=== PATIENT | female | born 1960 | race Caucasian/White ===

== ENCOUNTER 2022-04-01 06:37 | Day surgery (SDC) | payer OTHER, BC, SELFPAY ==
[2022-04-01] VITALS (13 sets, daily range): BP systolic 104–165; BP diastolic 58–75; PULSE 60–80; RESP 16; TEMP 36.1–36.5; O2SAT 96–98; BMI 34.4
[2022-04-01] MEDS: LACTATED RINGERS 1000 ML 1,000 ML 100 ML IV ×2 (07:00→08:32)
[2022-04-01] MEDS: SODIUM CHLORIDE 0.9 % (FLUSH) 10 ML SYRINGE IVF (07:32)
[2022-04-01] MEDS: CEFAZOLIN 2 GM INJ IVP (07:56)
--- NOTE | 2022-04-01 09:07 | P.ORPRC_ITS ---
Procedure Note Date of procedure: 04/01/22 Procedure: PREOPERATIVE DIAGNOSIS: 1. Left knee medial meniscus root tear POSTOPERATIVE DIAGNOSIS: 1. Left knee medial meniscus root tear, subacute 2. 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 Left knee arthroscopic partial medial meniscus root repair 2. Left knee medial femoral condyle chondroplasty 3. Left knee microfracture intercondylar notch SURGEON: Link Gross M.D. HEALTH AND SAFETY INSPECTOR: Brandt RILEY. Of note, a skilled library media assistant was critical for this case to aid in patient positioning, knee manipulation, skill to manipulate arthroscopic instruments and camera, instrument exchange, and closure. ANESTHESIA: Spinal EBL: 10 mL TOURNIQUET: 40 minutes at 300 torr IMPLANTS: Arthrex 4.75 MM peek SwiveLock suture anchor COMPLICATIONS: None evident INDICATIONS: The patient is a pleasant 61-year-old female who has experienced left knee pain particularly with any twisting or turning. Physical exam was concerning for medial meniscus tear, this was confirmed on MRI, but more specifically as at the posterior root. The medial meniscus had otherwise extruded into the medial gutter. Attempted nonoperative management has been tried, and failed. Thus, surgery was recommended for stabilization of the medial meniscus posterior root. FINDINGS: Grade 2 chondromalacia medial femoral condyle broadly throughout the weight-bearing portion. Grade 2 patellofemoral compartment. Intact lateral meniscus with intact articular cartilage lateral compartment. ACL and PCL were intact robust. Medial meniscus showed tearing of the posterior root in a radial manner and unstable. Some hemorrhagic tissue surrounding this region. DESCRIPTION OF PROCEDURE: After a thorough discussion of risks, benefits, and alternatives, the patient was brought to the operating room and placed upon the operating table. Induction of anesthesia was undertaken as previously noted. 2 g IV Ancef was administered within 1 hr of incision preoperatively. Appropriate time-out was performed identifying proper patient, site, and procedure. The left lower extremity was prepped and draped in the appropriate sterile fashion using ChloraPrep. The limb was exsanguinated and tourniquet inflated. Anterolateral and anteromedial portals were established with an 11 blade, and a diagnostic arthroscopy was performed. This identified the findings as noted above. Following the diagnostic arthroscopy, the meniscal root was debrided with a 4.0 mm torpedo shaver. This was to freshen the meniscal edge. This also allowed us to debride some the synovium on the medial wall within the notch. A flip cutter guide for the posterior meniscus root was utilized and placed in the desired fashion where the medial meniscus posterior root should attach. A 6 mm flip cutter was then drilled up from the medial tibial crest region, and exited exactly where our desired spot was. The blade was flipped, and it was retro drilled approximately 5-10 mm deep at most. Attention was then turned to securing of the meniscal root. The meniscal scorpion device was utilized to pass 2 separate # 0 fiber link sutures in a luggage tag fashion. Excellent security of the meniscus was achieved. These tails were brought down through the bone tunnel that was drilled with the flip cutter, using a shuttle suture. After providing tension on this, the meniscus indeed became stable, and improved in position. The sutures were anchored with a 4.75 mm peek SwiveLock suture anchor after drilling, tapping, and placing the anchor. The meniscus was reprobed and found to be stable. At this stage, the Arthrex power pick device was utilized to microfracture the intercondylar notch to aid with the healing of the meniscus repair. Instruments were removed, excess fluid was drained, and closure performed with 2-0 Vicryl for subcutaneous closure of the tibial incision, and 4-0 Monocryl for subcuticular closure and portal closure. with Steri-Strips. Dressings were applied, the tourniquet deflated, and the patient was awoken from anesthesia and transferred to the PACU in stable condition. A skilled library media assistant was critical for this case to aid in patient positioning, knee manipulation, skill to manipulate arthroscopic instruments and camera, instrument exchange, and closure. PLAN: 1. Toe-touch weightbear left lower extremity. Crutch / walker ambulation assistance PRN. 2. Ice, acetominophen and/or ibuprofen, and Percocet for pain as needed. 3. Knee range of motion and quad sets/straight leg raise regularly 4. Follow up with PA visit in 1-2 weeks for a wound check.
--- NOTE | 2022-04-01 09:08 | W.ANESCHARGE ---
Anesthesia Charges Start Date/Time Anesthesia Start Date: 04/01/22 Anesthesia Start Time: 07:42 Stop Date/Time Anesthesia Stop Date: 04/01/22 Anesthesia Stop Time: 09:10 Summary Emergency: No
--- NOTE | 2022-04-01 09:09 | W.PM.NB ---
Nerve Block Nerve Block Time Seen by Provider: 09:05 Date Seen: 04/01/22 Type of block requested by surgeon for post-operative analgesia: geniculars Time out performed: Yes Verification of patient name: Yes Verification of date of : Yes Site marking: site marked Name of person performing procedure: Terence Tinoco Continuous monitoring Was continuous monitoring of O2 sat, B/P, behavioral health professional, recorded every 15 minutes?: Yes Procedure Checklist: sterile prep, needles and gloves Ultrasound guided. Images saved: No Medications given in 5ml increments after negative aspiration: Ropivicaine %: 0.5 mL: 15 Needle gauge: 25 Patient tolerated procedure well: Yes Block Charges Block Charge (with Pro Fee): Genicular Nerve Block Use of Ultrasound Machine for Block: No
--- NOTE | 2022-04-01 09:16 | W.ANESCHARGE ---
Anesthesia Charges Start Date/Time Anesthesia Start Date: 04/01/22 Anesthesia Start Time: 07:42 Stop Date/Time Anesthesia Stop Date: 04/01/22 Anesthesia Stop Time: 09:10 Summary Emergency: No
--- NOTE | 2022-04-01 09:17 | SUR.PHASEI ---
Pt has brace on left knee set at 90 degrees flex and 0 degrees extension
--- NOTE | 2022-04-01 09:24 | SUR.PHASEI ---
Pt starting to move toes and feet senies any pain at this time
[2022-04-01] MEDS: OxyCODONE/APAP 5-325 TABLET PO (10:45)
== END 2022-04-01 11:00 | disposition home or self-care (01) ==
PROVIDERS: Visit Provider Orthopaedic Surgery Sports Medicine
PROC: (CPT 29882; principal; 2022-04-01 07:45)
DX: M23.222 Derangement of posterior horn of medial meniscus due to old tear or injury, left knee (principal); M94.262 Chondromalacia, left knee
CPT/HCPCS: 29882; 29879; 01400; 64454; 97161; A9270; C1713; J0690; J2250; J2400; J2405; J2704; J3010; J7120; L1833

== ENCOUNTER 2022-04-30 10:30 | Outpatient (RCR) | payer OTHER, BC, SELFPAY | END 2022-06-03 11:14 | disposition home or self-care (01) | PROVIDERS: PCP Physician Assistant Surgical; Visit Provider Physician Assistant Surgical | DX: Z98.890 Other specified postprocedural states (principal); Z51.89 Encounter for other specified aftercare | CPT/HCPCS: 97110; 97140; 97161 ==

== ENCOUNTER 2025-07-13 08:31 | Outpatient (CLI) | payer BC, SELFPAY | END 2025-07-13 08:32 | disposition home or self-care (01) | LOC: NFLDREF 07-18 18:01 | PROVIDERS: PCP Family Medicine; Referring Provider Family Medicine; Visit Provider Family Medicine | DX: E55.9 Vitamin D deficiency, unspecified (principal); E78.5 Hyperlipidemia, unspecified; I10 Essential (primary) hypertension; E66.9 Obesity, unspecified; Z68.35 Body mass index [BMI] 35.0-35.9, adult; R73.03 Prediabetes; R53.83 Other fatigue | CPT/HCPCS: 80053; 80061; 82306; 84443 ==

== ENCOUNTER 2025-07-17 08:06 | Outpatient (CLI) | payer BC, SELFPAY | END 2025-07-17 08:07 | disposition home or self-care (01) | LOC: NFLDREF 07-21 16:36 | PROVIDERS: PCP Family Medicine; Visit Provider Family Medicine | DX: D72.820 Lymphocytosis (symptomatic) (principal); E55.9 Vitamin D deficiency, unspecified; E78.5 Hyperlipidemia, unspecified; I12.9 Hypertensive chronic kidney disease with stage 1 through stage 4 chronic kidney disease, or unspecified chronic kidney disease; N18.30 Chronic kidney disease, stage 3 unspecified; R31.29 Other microscopic hematuria; R73.03 Prediabetes | CPT/HCPCS: 87086 ==